=== PATIENT | male | born 1950 | race Caucasian/White ===

== ENCOUNTER → 2020-01-10 12:16 | Outpatient (CLI) | payer MEDICARE, SELFPAY ==
--- NOTE | ~2020-01-10 | XR_ITS ---
EXAMINATION: XR foot LT min 3V EXAM DATE: 01/10/2020 12:36 INDICATION: No known recent injury provided at this time. Pain of the left foot. TECHNIQUE: Left foot dorsoplantar, lateral and oblique projections obtained and reviewed. There is n o prior study for comparison. FINDINGS: There is mild hallux valgus. There is mild to moderate left 1st MTP primary osteoarthritis . Bunion. Small inferior calcaneal spur. There is mild polyarticular midfoot primary osteoarthritis. There are no acute fractures or dislocations identified. There is no subcutaneous gas. The soft ti ssue is unremarkable. There are no radiopaque foreign bodies. IMPRESSION: 1. XR foot LT min 3V exam without acute osseous findings. 2. Bunion, hallux valgus, mild to moderate 1st MTP osteoarthritis. Reviewed, dictated and finalized at location A.
== END ==
PROVIDERS: PCP Family Medicine; Visit Provider Physician Assistant
DX: M19.072 Primary osteoarthritis, left ankle and foot (principal); M20.12 Hallux valgus (acquired), left foot
CPT/HCPCS: 73630

== ENCOUNTER → 2020-12-08 10:47 | Outpatient (CLI) | payer MEDICARE, SELFPAY ==
--- NOTE | ~2020-12-08 | CT_ITS ---
EXAMINATION: CT lung screening DATE: 12/08/2020 11:02 INDICATION: Personal history of tobacco dependence, current smoker with 50 pack year history TECHNIQUE: Computed tomography (CT) of the chest was performed without intravenous contrast. The dose -length product (DLP) was 120.70 mGy-cm. Automated exposure control and iterative reconstruction tech [employer] were employed. COMPARISON: None FINDINGS: There is moderate emphysema. Scattered 1 to 2 mm nodules are present in the upper lobes. Th e lungs are free of focal airspace opacities. There is no pleural effusion or pneumothorax. No pathol ogically enlarged thoracic lymph nodes are identified. The heart size is normal. There is calcified c oronary artery atherosclerosis. There is moderate thoracic spondylosis. IMPRESSION: 1. Lung-RADS category 2: Benign appearance or behavior. Continue annual screening with noncontrast lo w-dose chest CT in 12 months. Reviewed, dictated and finalized at location A. IMPRESSION: 1. Lung-RADS category 2: Benign appearance or behavior. Continue annual screeni ng with noncontrast low-dose chest CT in 12 months.
== END ==
PROVIDERS: PCP Family Medicine; Visit Provider Physician Assistant
DX: Z12.2 Encounter for screening for malignant neoplasm of respiratory organs (principal); Z87.891 Personal history of nicotine dependence
CPT/HCPCS: 71271

== ENCOUNTER 2023-03-07 17:14 | Observation (INO) | payer MEDICARE, SELFPAY ==
[2023-03-07] VITALS (36 sets, daily range): BP systolic 94–116; BP diastolic 74–89; PULSE 94–170; RESP 14–30; TEMP 36–37.2; O2SAT 91–99
--- NOTE | ~2023-03-07 | XR_ITS ---
EXAMINATION: XR chest 1V portable Exam Date/Time: 03/07/2023 17:45 CDT HISTORY: chest pain/dizzy/rapid heartrate Comparison: CT lung screening 12/08/2020. RESULT: Lines, tubes, and devices: Suture wires project to the right of midline. Lungs and pleura: Senescent change. Diffuse interstitial opacity. Calcified granulomas. Cardiomediastinal silhouette: Stable. Other: No acute osseous or upper abdominal finding. IMPRESSION: Mild interstitial edema. Reviewed, dictated and finalized at location K. IMPRESSION: Mild interstitial edema.
--- NOTE | 2023-03-07 17:16 | ECG_ITS ---
Measurements Intervals [place] Rate: 141 P: 66 NC: 138 QRS: 67 QRSD: 89 T: 63 QT: 307 QTc: 472 Interpretive Statements SINUS TACHYCARDIA WITH FREQUENT SUPRAVENTRICULAR PREMATURE COMPLEXES, POSSIBLE ATRIAL FLUTTER/TACHYCARDIA NONSPECIFIC T-WAVE ABNORMALITY ABNORMAL RHYTHM ECG NO PREVIOUS ECG AVAILABLE FOR COMPARISON Electronically Signed On 03-08-2023 19:45:46 CDT by Vee Carrillo M.D.
[2023-03-07 17:33] LABS: Basophils Percent Auto 0.7 % (0.2-1.2); Eosinophils Absolute Auto 0.1 K/mm3 (0-0.3); Eosinophils Percent Auto 1.2 % (0-4.4); Hematocrit 44.7 % (42.0-52.0); Hemoglobin 15.2 g/dL (14.0-18.0); Immature Granulocyte Absolute 0.01 K/mm3 (0.00-0.031); Immature Granulocyte Percent A 0.2 % (0-0.5); Lymphocytes Absolute Auto 1.64 K/mm3 (0.9-3.2); Lymphocytes Percent Auto 28.4 % (18.3-44.2); Mean Corpuscular Hemoglobin 31.7 pg (26-34); Mean Corpuscular Volume 93.1 fl (80-100); Mean Platelet Volume 9.2 fl (7.4-10.4); Monocytes Absolute Auto 0.5 K/mm3 (0.1-0.6); Monocytes Percent Auto 8.3 % (2.6-8.5); Neutrophils Absolute Auto 3.5 K/mm3 (1.3-6.7); Neutrophils Percent Auto 61.2 % (45.5-73.1); Platelet Count Result 171 k/mm3 (150-375); Red Cell Distribution Width 13.5 % (11.5-14.5); White Blood Count 5.8 K/mm3 (4.5-10.0)
[2023-03-07 17:43] LABS: Alanine Aminotransferase 20 U/L (6-50); Albumin Level 4.1 g/dL (3.5-5.1); Alkaline Phosphatase 71 U/L (38-126); Anion Gap 10 mmol/L (8-16); Aspartate Amino Transferase 35 U/L (17-59); Bilirubin,Total 0.7 mg/dL (0.2-1.3); Blood Urea Nitrogen 16 mg/dL (9-20); Calcium 9.2 mg/dL (8.4-10.2); Carbon Dioxide 20 mmol/L (22-30); Chloride 105 mmol/L (98-107); Estimated CRCL calculation 80 ml/min; Estimated Glomerular Filt Rate > 60; Glucose 158 mg/dL (65-110); Lipase 228 U/L (23-300); Partial Thromboplastin Time 27.8 SECONDS (22.3-36.8); Potassium 3.4 mmol/L (3.4-5.0); Prothrombin Time 13.3 Seconds (11.1-14.7); Sodium 135 mmol/L (137-145)
--- NOTE | 2023-03-07 17:48 | ED.DIZZY ---
HPI - Dizziness General Chief Complaint: Dizziness Stated Complaint: chest pain/dizziness Time Seen by Provider: 03/07/23 17:37 History of Present Illness HPI Narrative: Pt says he felt fluttering and palpitations and dizziness about 1330 today. Pt says it feels like he has a gas bubble in his chest like he needs to burp but can't. Pt says the dizziness i s more like he's going to pass out especially when he leans over. Related Data Home Medications Medication Instructions Recorded Confirmed No Home Medications 11/19/20 09/30/22 Allergies Allergy/AdvReac Type Severity Reaction Status Date / Time No Known Allergies Allergy Verified 03/07/23 17:53 Review of Systems Review of Systems: All systems reviewed & are unremarkable except as noted in HPI and below PMFSH Past Medical History Medical History Chronic left hip pain Chronic right hip pain Current smoker Degenerative joint disease of both hips FH: CAD (coronary artery disease) H/O gastroesophageal reflux (GERD) Healthy male adult Normal colonoscopy (~2015) polyps Trochanteric bursitis, left hip Trochanteric bursitis, right hip Surgical History Surgical History H/O hernia repair Family History Family History Father Carcinoma of colon Mother Family history of cardiovascular disease Hypothyroidism Sibling Diabetes mellitus Sibling Acute myocardial infarction Sibling Acute myocardial infarction Other Family history of coronary artery disease Family history of malignant neoplasm Social History Social History Smoking packs per day: 0.5 Smoking cigarettes per day: 10.0 Years smoked: 50 Smoking pack-years: 25.00 Smoking status: Current every day smoker Tobacco type: cigarettes Second hand tobacco smoke exposure: No Alcohol intake: never Substance use: never Substance use type: does not use Current Housing: Decline to Answer Concerned About Future Housing: Decline to Answer Difficulty Paying Gas/Electric Bills: Decline to Answer Difficulty Paying for Meds: Decline to Answer Currently Unemployed: Decline to Answer Difficulty w/ Childcare or Family Care: Decline to Answer Occupation/Education: retired Gender identity (if verbalized by the patient): Male Sexual Orientation (if Verbalized by the Patient): Straight or Heterosexual Spiritual care concerns: No Agree to blood products: Yes Exam Const: General: healthy appearing and no acute distress Nutritional Appearance: well nourished Orientation/consciousness: patient oriented x3 Limitations: no limitations Neck: Neck: normal visual inspection Chest: Chest palpation & inspection: normal inspection of the chest Resp: Effort & Inspection: normal respiratory effort Auscultation: clear to auscultation bilaterally Cardio: Rate: tachycardic Rhythm: abnormal rhythm GI: GI Palp: Yes Soft to palpation Auscultation: normal bowel sounds Skin: General skin exam: normal color Neuro: General: patient oriented x3, moves all extremities, no focal motor deficits and CN's II-XI intact bilaterally Speech: normal speech Extrem: General: normal to inspection and no clubbing, cyanosis or edema Psych: Mental Status: mental status grossly normal Affect: normal affect Attitude: cooperative Course Vital Signs Vital signs: Vital Signs Temperature 98.9 F 03/07/23 17:16 Pulse Rate 94 03/07/23 17:16 Respiratory Rate 16 03/07/23 17:16 Blood Pressure 103/83 03/07/23 17:16 Pulse Oximetry 97 03/07/23 17:16 Oxygen Delivery Room Air 03/07/23 17:16 Temperature 98.9 F 03/07/23 17:16 Pulse Rate 130 H 03/07/23 18:37 Respiratory Rate 16 03/07/23 18:37 Blood P
[2023-03-07 17:54] LABS: Troponin I < 0.012 ng/mL (0.000-0.034)
[2023-03-07] MEDS: SODIUM CHLORIDE 0.9% IV 1,000 ML 999 ML IV CONT (17:54)
[2023-03-07] MEDS: dilTIAZem HCl INJ 25 MG/5 ML VIAL 20 MG IV PUSH (18:29)
--- NOTE | 2023-03-07 18:48 | ECG_ITS ---
Measurements Intervals [place] Rate: 126 P: [place]: 0 QRS: 65 QRSD: 90 T: 60 QT: 311 QTc: 451 Interpretive Statements ATRIAL FIBRILLATION WITH RAPID VENTRICULAR RESPONSE ABNORMAL RHYTHM ECG COMPARED TO ECG 03/07/2023 17:20:19 ATRIAL FIBRILLATION NOW PRESENT Electronically Signed On 03-08-2023 19:47:04 CDT by Vee Carrillo M.D.
--- NOTE | 2023-03-07 19:18 | PC.NURSE ---
Report from EMIL Nicholson.
[2023-03-07] MEDS: dilTIAZem 100 MG/100 ML 100 MG/100 ML BAG IV CONT (19:22)
[2023-03-07 19:43] LABS: Magnesium 1.9 mg/dL (1.6-2.3)
--- NOTE | 2023-03-07 20:07 | PM.IMHP ---
H&P: HPI History of Present Illness Date/Time: 03/07/23 22:10 Chief Complaint: Dizziness and palpitations Narrative: This is a 72-year-old male patient previously healthy who presented to the emergency department due to acute onset dizziness and palpitations started at 13:30 this afternoon abruptly while he was bending over to pick something patient denies chest some breath but states he could feel his heart pounding and he would get dizzy especially when he bent over. Patient denies any previous episodes similar to this. He has never had palpitations. He never had chest pain. Patient reports a dependence on Afrin and that he is a smoker. Review of Systems Review of Systems: All systems reviewed & are unremarkable except as noted in HPI and below PMFSH Past Medical History Medical History Chronic left hip pain Chronic right hip pain Current smoker Degenerative joint disease of both hips FH: CAD (coronary artery disease) H/O gastroesophageal reflux (GERD) Healthy male adult Normal colonoscopy (~2015) polyps Trochanteric bursitis, left hip Trochanteric bursitis, right hip Surgical History Surgical History H/O hernia repair Family History Family History Father Carcinoma of colon Mother Family history of cardiovascular disease Hypothyroidism Sibling Diabetes mellitus Sibling Acute myocardial infarction Sibling Acute myocardial infarction Other Family history of coronary artery disease Family history of malignant neoplasm Social History Social History Smoking packs per day: 1 Smoking cigarettes per day: 20.0 Years smoked: 55 Smoking pack-years: 55.00 Smoking status: Heavy tobacco smoker Tobacco type: cigarettes Second hand tobacco smoke exposure: No Alcohol intake: never Substance use: never Substance use type: does not use Lack of Transportation: No Lack of Food: Never True Current Housing: I Have Housing Concerned About Future Housing: No Difficulty Paying Gas/Electric Bills: No Difficulty Paying for Meds: No Currently Unemployed: No Education: Bachelor's Degree Difficulty w/ Childcare or Family Care: No Occupation/Education: retired Gender identity (if verbalized by the patient): Male Sexual Orientation (if Verbalized by the Patient): Straight or Heterosexual Spiritual care concerns: No Agree to blood products: Yes Meds Home Medications and Allergies Home Medications Medication Instructions Recorded Confirmed Type oxymetazoline 0.05 % nasal spray 2 spray intranasal Q12H PRN Sinus 03/07/23 03/07/23 History (Afrin Sinus (oxymetazoline)) Symptoms Allergies Allergy/AdvReac Type Severity Reaction Status Date / Time No Known Allergies Allergy Verified 03/07/23 17:53 Vital Signs Vital Signs - 24 hr 03/07/23 17:16 03/07/23 17:49 03/07/23 17:53 Temperature 37.2 C Pulse Rate 94 135 H 152 H Respiratory Rate 16 16 Blood Pressure 103/83 107/80 Pulse Oximetry 97 96 Oxygen Delivery Room Air 03/07/23 18:24 03/07/23 18:30 03/07/23 18:31 Temperature Pulse Rate 146 H 111 H 159 H Respiratory Rate 19 18 17 Blood Pressure 108/74 Pulse Oximetry 98 99 94 Oxygen Delivery 03/07/23 18:34 03/07/23 18:35 03/07/23 18:37 Temperature Pulse Rate 125 H 163 H 130 H Respiratory Rate 21 H 17 16 Blood Pressure 108/80 97/77 L Pulse Oximetry 91 95 94 Oxygen Delivery 03/07/23 19:22 Temperature Pulse Rate 116 H Respiratory Rate Blood Pressure 103/86 Pulse Oximetry Oxygen Delivery Exam Narrative: GENERAL: Generally well appearing, alert and oriented, in no apparent distress. HEENT: Pupils are equally round and briskly reac
--- NOTE | 2023-03-07 20:42 | PC.NURSE ---
Report to Beau in IMU. All questions answered.
[2023-03-07] MEDS: dilTIAZem HCl INJ 25 MG/5 ML VIAL 15 MG IV PUSH (21:43)
[2023-03-07 22:13] LABS: Troponin I 0.045 ng/mL (0.000-0.034)
--- NOTE | 2023-03-07 22:43 | ADMGEN ---
This patient, Gibson Manley, was admitted to IMU Room 205-02. Patient/family oriented to hospital policies and general routines including ID bracelet, bed and alarms, visiting hours, pain management, procedures, bathroom and other care routines, personal items, smoking policy, room service/diet, and visiting hours. Information on how to activate the Rapid Response Team has been discussed. Patient/Family are encouraged to report perceived risks to care and to ask questions if they do not understand what they are told or what they should do.
[2023-03-07] MEDS: HEPARIN SODIUM 5,000 UNITS/ML VIAL 4000 UNITS IV PUSH (22:52)
[2023-03-07] MEDS: HEPARIN SOD/D5W 100 UNITS/ML 25,000 UNITS/250 ML BAG 9 UNITS IV CONT (22:53)
[2023-03-07] MEDS: dilTIAZem 100 MG/100 ML 100 MG/100 ML BAG 10 MG IV CONT (22:54)
[2023-03-07 23:22] LABS: Basophils Percent Auto 0.5 % (0.2-1.2); Eosinophils Absolute Auto 0.1 K/mm3 (0-0.3); Eosinophils Percent Auto 1.6 % (0-4.4); Hematocrit 41.4 % (42.0-52.0); Hemoglobin 13.9 g/dL (14.0-18.0); Immature Granulocyte Absolute 0.01 K/mm3 (0.00-0.031); Immature Granulocyte Percent A 0.1 % (0-0.5); Lymphocytes Absolute Auto 1.76 K/mm3 (0.9-3.2); Lymphocytes Percent Auto 23.9 % (18.3-44.2); Mean Corpuscular HGB Conc 33.6 g/dl (32-36); Mean Corpuscular Hemoglobin 31.7 pg (26-34); Mean Corpuscular Volume 94.5 fl (80-100); Mean Platelet Volume 9.2 fl (7.4-10.4); Monocytes Absolute Auto 0.7 K/mm3 (0.1-0.6); Monocytes Percent Auto 9.9 % (2.6-8.5); Neutrophils Absolute Auto 4.7 K/mm3 (1.3-6.7); Platelet Count Result 163 k/mm3 (150-375); Red Blood Count 4.38 M/mm3 (4.6-6.20); Red Cell Distribution Width 13.7 % (11.5-14.5); White Blood Count 7.4 K/mm3 (4.5-10.0)
[2023-03-07 23:50] LABS: NT Pro B Type Natriuretic Pept 828 pg/mL (19.9-100); Troponin I 0.057 ng/mL (0.000-0.034)
[2023-03-08] VITALS (12 sets, daily range): BP systolic 93–117; BP diastolic 65–84; PULSE 68–139; RESP 14–20; TEMP 36.2–37; O2SAT 96–100
--- NOTE | 2023-03-08 | ECHO_ITS ---
Patient Info Name: Gibson Manley Age: 72 years : 1950 Gender: Male Ht: 71 in Wt: 169 lbs BSA: 1.96 m2 HR: 107 bpm BP: 114 / 67 mmHg Heart Rhythm: Sinus Rhythm Technical Quality: Good Exam Date: 03/08/2023 8:58 AM Exam Location: [facility] Card Pulmonary Patient Status: Outpatient Admit Date: 03/07/2023 Staff Ordering Physician: Milton Lanier APRN Engine Emission Technician: Owen Correa RDCS Attending Provider: Darlene Mohan DO Referring Physician: Yannick ADAMS; Exam Type: CA echo doppler color flow Study Info Indications - new a fib, psitive troponin Complete two-dimensional, color flow and Doppler transthoracic echocardiogram is performed. Summary 1. Complete two-dimensional, color flow and Doppler transthoracic echocardiogram is performed. 2. Normal left ventricular size and and thickness. Normal left ventricular function with no segmental wall motion abnormalities. Normal diastolic function. Ejection fraction 60-65%. 3. Left atrial chamber dimension is mildly enlarged. 4. No pulmonary hypertension, estimated pulmonary arterial systolic pressure is 27 mmHg. 5. No significant valve disease. 6. Normal sinus rhythm. Left Ventricle Left ventricular chamber dimension is normal. Left ventricular systolic function is normal, estimated at 60-65%. There is no increased left ventricular wall thickness. Left ventricular septal wall motion is normal. The left ventricular diastolic function is normal. Right Ventricle Right ventricular chamber dimension is normal. Right ventricular systolic function is normal. Left Atria Left atrial chamber dimension is mildly enlarged. Right Atria Right atrial chamber dimension is normal. Aortic Valve The aortic valve is trileaflet. There is no aortic valve sclerosis. There is no aortic valve stenosis. There is no aortic valve regurgitation. Pulmonic Valve The pulmonic valve is normal. There is no pulmonic valve stenosis. There is no pulmonic regurgitation. Mitral Valve The mitral valve has normal leaflets. There is no mitral valve stenosis. There is no mitral valve regurgitation. Tricuspid Valve The tricuspid valve leaflets are normal. There is no significant tricuspid valve stenosis. There is trace tricuspid valve regurgitation. No pulmonary hypertension, estimated pulmonary arterial systolic pressure is 27 mmHg. Pericardium/Pleural The pericardium appears normal. There is no pericardial effusion. Inferior Vena Cava Normal inferior vena cava with >50% collapse upon inspiration consistent with Empty right atrial pressure, 10 mmHg. Aorta The aortic root size at the sinus of Valsalva is normal. The prox ascending aorta size is normal. Left Ventricular Outflow Tract Name Value Normal LVOT 2D LVOT Diameter 2.0 cm LVOT Doppler LVOT Peak Gradient 3 mmHg LVOT Mean Gradient 2 mmHg LVOT VTI 22 cm LVOT VTI/AV VTI Ratio 0.8 LVOT Stroke Volume 69 ml LVOT CO 4.0 l/min LVOT CI 2.0 l/min/m2 Pulmonic Valve -------
[2023-03-08 05:12] LABS: Basophils Absolute Auto 0.1 K/mm3 (0.0-0.1); Basophils Percent Auto 0.9 % (0.2-1.2); Eosinophils Absolute Auto 0.1 K/mm3 (0-0.3); Eosinophils Percent Auto 1.1 % (0-4.4); Hemoglobin 14.3 g/dL (14.0-18.0); Immature Granulocyte Absolute 0.02 K/mm3 (0.00-0.031); Immature Granulocyte Percent A 0.3 % (0-0.5); Lymphocytes Absolute Auto 1.72 K/mm3 (0.9-3.2); Lymphocytes Percent Auto 26.2 % (18.3-44.2); Mean Corpuscular HGB Conc 33.3 g/dl (32-36); Mean Corpuscular Hemoglobin 32.1 pg (26-34); Mean Corpuscular Volume 96.6 fl (80-100); Mean Platelet Volume 9.5 fl (7.4-10.4); Monocytes Absolute Auto 0.8 K/mm3 (0.1-0.6); Monocytes Percent Auto 11.4 % (2.6-8.5); Neutrophils Percent Auto 60.1 % (45.5-73.1); Platelet Count Result 160 k/mm3 (150-375); Red Blood Count 4.45 M/mm3 (4.6-6.20); Red Cell Distribution Width 13.7 % (11.5-14.5); White Blood Count 6.6 K/mm3 (4.5-10.0)
[2023-03-08 05:23] LABS: Partial Thromboplastin Time 53.3 SECONDS (22.3-36.8)
[2023-03-08 05:26] LABS: Alanine Aminotransferase 17 U/L (6-50); Albumin Level 3.4 g/dL (3.5-5.1); Alkaline Phosphatase 59 U/L (38-126); Anion Gap 5 mmol/L (8-16); Aspartate Amino Transferase 29 U/L (17-59); Bilirubin,Total 0.7 mg/dL (0.2-1.3); Blood Urea Nitrogen 12 mg/dL (9-20); Calcium 8.1 mg/dL (8.4-10.2); Carbon Dioxide 23 mmol/L (22-30); Chloride 108 mmol/L (98-107); Estimated CRCL calculation 90 ml/min; Estimated Glomerular Filt Rate > 60; Glucose 99 mg/dL (65-110); Potassium 3.5 mmol/L (3.4-5.0); Sodium 136 mmol/L (137-145)
[2023-03-08] MEDS: HEPARIN SODIUM 5,000 UNITS/ML VIAL 4000 UNITS IV PUSH (05:37)
[2023-03-08] MEDS: dilTIAZem 100 MG/100 ML 100 MG/100 ML BAG 10 MG IV CONT (08:32)
--- NOTE | 2023-03-08 08:46 | ECG_ITS ---
Measurements Intervals [place] Rate: 75 P: 59 IN: 131 QRS: 69 QRSD: 92 T: 59 QT: 391 QTc: 439 Interpretive Statements SINUS RHYTHM POSSIBLE LEFT ATRIAL ENLARGEMENT [-0.1mV P WAVE IN V1/V2] COMPARED TO ECG 03/07/2023 19:05:16 SINUS RHYTHM NOW PRESENT Electronically Signed On 03-08-2023 19:54:31 CDT by Vee Carrillo M.D.
[2023-03-08 11:54] LABS: Partial Thromboplastin Time 62.2 SECONDS (22.3-36.8)
[2023-03-08] MEDS: HEPARIN SODIUM 5,000 UNITS/ML VIAL 3000 UNITS IV PUSH (12:33)
--- NOTE | 2023-03-08 13:16 | PM.IMPN ---
Progress Note: A&P Assessment and Plan (1) Atrial fibrillation with RVR: Code(s): I48.91 - Unspecified atrial fibrillation Status: Acute Assessment and Plan: New onset atrial fibrillation with palpitations dizziness starting 1330 this afternoon prompted by bending over. Patient showing improvement Cardizem bolus, Cardizem drip infusing. (2) Elevated troponin I level: Code(s): R79.89 - Other specified abnormal findings of blood chemistry Status: Acute Assessment and Plan: Troponin elevated on second draw. Heparin drip ordered. Most likely due to demand ischemia from tachydysrhythmia. 6 hour troponin pending. (3) Current smoker: Code(s): F17.200 - Nicotine dependence, unspecified, uncomplicated Status: Acute Assessment and Plan: Patient refused nicotine patch. (4) Chronic rhinitis: Code(s): J31.0 - Chronic rhinitis Status: Acute Assessment and Plan: Patient is physiologically dependent on Afrin. Threatened to leave AMA with HR 170s unless he got his Afrin ordered. He then threw the bottle because it was not mentholated. May use home medication when available. Plan Admit to IMU Cardizem drip Troponin 4x in 3 hours, heparin drip ordered Echocardiogram ordered Cardiology consult, appreciate recommendations and assistance New onset a-fib, may be Cardioversion candidate Potassium and magnesium repleted to optimize in light of tachydysrhythmia Patient very sharp and not polite, caution with interactions Subjective Date/time seen: 03/08/23 13:16 Interval history: no new complaints no in sinus rhythm Exam Narrative: GENERAL: Generally well appearing, alert and oriented, in no apparent distress. HEENT: Pupils are equally round and briskly reactive to light. Extraocular muscles are intact. Oral mucous membranes are moist without lesions. NECK: The patient has no noted JVD. No adenopathy is appreciated. CHEST/LUNGS: Lungs are clear bilaterally without rhonchi, rales, or wheezes. There is no subcutaneous air appreciated. There is no tenderness to the chest wall. HEART: Irregularly irregular rhythm with rapid rate, atrial fibrillation with RVR rate of 126 on bedside fatback trimmer per my interpretation. No murmurs, rubs, or gallops are appreciated. Distal pulses are 2+. ABDOMEN: The patient?s abdomen is soft, nontender, and nondistended. Bowel sounds are positive. No peritoneal signs. EXTREMITIES: The patient has no peripheral edema. There is no focal long bone tenderness or deformity. SKIN: The patient?s skin is warm and dry, without rashes or lesions. PSYCHIATRIC: The patient has normal mental status and has a terse affect. NEUROLOGIC: There are no gross deficits to the cranial nerves. Patient ambulates with steady gait. Objective Data Vital Signs Vital Signs: Vital Signs - 24 hr 03/07/23 17:16 03/07/23 17:49 03/07/23 17:53 Temperature 98.9 F Pulse Rate 94 135 H 152 H Respiratory Rate 16 16 Blood Pressure 103/83 107/80 Pulse Oximetry 97 96 Oxygen Delivery Room Air 03/07/23 18:24 03/07/23 18:30 03/07/23 18:31 Temperature Pulse Rate 146 H 111 H 159 H Respiratory Rate 19 18 17 Blood Pressure 108/74 Pulse Oximetry 98 99 94 Oxygen Delivery 03/07/23 18:34 03/07/23 18:35 03/07/23 18:37 Temperature Pulse Rate 125 H 163 H 130 H Respiratory Rate 21 H 17 16 Blood Pressure 108/80 97/77 L Pulse Oximetry 91 95 94 Oxygen Delivery 03/07/23 19:22 03/07/23 20:48 03/07/23 20:16 Temperature Pulse Rate 116 H 152 H 157 H Respiratory Rate Blood Pressure 103/86 107/84 109/86 Pulse Oximetry Oxygen Delivery 03/07/23 18:38 03/07/23 18:39 03/07/23 18:45 Temperature Pulse Rate 124 H 129 H 133 H Respiratory Rate 19 18 14 Blood Pressure 94/79 L Pulse Oximetry 94 94 96 Oxygen Delivery 03/07/23 18:46 03/07/23 19:00 03/07/23 19:01 Temperature Pulse Rate 136 H 131 H 144 H Respira
--- NOTE | 2023-03-08 17:22 | PM.CNCAR ---
Assessment and Plan Assessment and plan (1) Atrial fibrillation with RVR: Code(s): I48.91 - Unspecified atrial fibrillation Status: Acute Assessment and Plan: New onset of paroxysmal AFib with rapid ventricular response. Symptomatic with severe dizziness, some mild chest discomfort. He did have a small bump in troponins and proBNP but has converted to sinus rhythm. No history to suggest prior problems with any CAD or CHF. Counseled patient extensively about paroxysmal atrial fibrillation, etiologies, treatment, risk of cardioembolic events. Patient's chads 2 Vasc score is 1. --recommend aspirin 325 mg daily --DC Cardizem drip --start Cardizem 180 mg daily --if up and about with no problems, can be discharged tonight or tomorrow with office follow-up --will see if the patient needs an anti rhythmic agent if he has recurrences in the near future. --will obtain a TSH as an outpatient to complete the AFib evaluation (2) Elevated troponin I level: Code(s): R79.89 - Other specified abnormal findings of blood chemistry Status: Acute Assessment and Plan: Mildly elevated troponin and chest discomfort, which appears to be nonischemic myocardial injury due to AFib RVR. Rule out underlying CAD to evaluate the chest pain and also see if the patient would be a candidate for propafenone or flecainide therapy.. --outpatient stress echo (3) Tobacco use: Code(s): Z72.0 - Tobacco use Status: Acute Assessment and Plan: Tobacco cessation encouraged History of Present Illness History of Present Illness Consult date/time: 03/08/23 17:22 Reason For Visit: A Flutter with RVR Narrative: Gibson Manley is a 72-year-old male whom we are asked to see at the request of HODA Lanier for advice and opinion regarding his atrial fibrillation, in consultation. Previously healthy. Patient was in his normal state of health yesterday when he suddenly developed dizziness and racing heart beat. He had some chest discomfort, a gassy feeling. He came to the emergency room with atrial fib RVR, with his heart rate 94-130 and blood pressure initially was 97/77 and 103/83, with good oxygenation on room air. He was started on a Cardizem drip. He converted to sinus rhythm this morning. He would like to be discharged soon. Troponins were 0.012, 0.45 and 0.57 and proBNP was 800. 03/07/2023 EKG at 5:20 p.m.: NSR/sinus tachycardia with frequent APCs and brief runs of atrial tachycardia. 03/07/2023 EKG at 7:05 p.m.: AFib RVR rate 126, nonspecific ST changes 03/08/2023 EKG at 8:59 a.m.: NSR with short AR interval rate 75, no ischemic changes All EKGs personally reviewed Had minor fleeting palpitations in the past but nothing sustained. Can not exercise and work hard with no shortness of breath or chest discomfort. History of tobacco use but no hx heart dz, HTN, DM. NO KODI, etoh, h/o thyroid dz. Possible heart disease in the family. No TSH available Chest x-ray: Mild interstitial edema. Personally reviewed, agree, probable pulmonary vascular congestion and mild CHF Review of Systems Constitutional: Constitutional: Denies fever(s) Eyes: Eyes: Reports no additional eye complaints ENT: Denies epistaxis Cardiovascular: Cardiovascular: Denies chest pain, Denies pedal edema, Denies lightheadedness and Denies dyspnea Respiratory: Respiratory: Denies chest congestion and Denies dyspnea Gastrointestinal: Gastrointestinal: Denies abdominal pain and Denies hematochezia Genitourinary: Genitourinary: Denies hematuria Musculoskeletal: Musculoskeletal: Reports no additional musculoskeletal complaints Integumentary/Breasts: Skin/Breast: Reports system reviewed and no additional complaints, except as docu Neurologic: Reports system reviewed and no additional complaints, except as documented and Denies behavioral changes Psychiatric: Psychiatric: Denies behavioral changes [facility]
[2023-03-08] MEDS: dilTIAZem HCL CD 180 MG CAP.24HR PO (18:43)
--- NOTE | 2023-03-08 19:07 | PM.DS ---
DS: Admitting Diagnosis Discharge Date 03/08/23 Admitting Diagnosis afib flutter DS: Discharge Diagnosis Discharge Diagnosis (1) Atrial fibrillation with RVR: Code(s): I48.91 - Unspecified atrial fibrillation Status: Acute Assessment and Plan: New onset atrial fibrillation with palpitations dizziness starting 1330 this afternoon prompted by bending over. Patient showing improvement Cardizem bolus, Cardizem drip infusing. (2) Elevated troponin I level: Code(s): R79.89 - Other specified abnormal findings of blood chemistry Status: Acute Assessment and Plan: Troponin elevated on second draw. Heparin drip ordered. Most likely due to demand ischemia from tachydysrhythmia. 6 hour troponin pending. (3) Current smoker: Code(s): F17.200 - Nicotine dependence, unspecified, uncomplicated Status: Acute Assessment and Plan: Patient refused nicotine patch. (4) Chronic rhinitis: Code(s): J31.0 - Chronic rhinitis Status: Acute Assessment and Plan: Patient is physiologically dependent on Afrin. Threatened to leave AMA with HR 170s unless he got his Afrin ordered. He then threw the bottle because it was not mentholated. May use home medication when available. Plan Admit to IMU Cardizem drip Troponin 4x in 3 hours, heparin drip ordered Echocardiogram ordered Cardiology consult, appreciate recommendations and assistance New onset a-fib, may be Cardioversion candidate Potassium and magnesium repleted to optimize in light of tachydysrhythmia Patient very sharp and not polite, caution with interactions DS: Summary Hospital Course Hospital Course: admitted for afib flutter, new dx workup unrevelaing fu cardiology cardizem adn full dose aspirin on dc Time Spent with Patient Time attestation: Total time spent providing and/or coordinating discharge services: Exam Narrative: GENERAL: Generally well appearing, alert and oriented, in no apparent distress. HEENT: Pupils are equally round and briskly reactive to light. Extraocular muscles are intact. Oral mucous membranes are moist without lesions. NECK: The patient has no noted JVD. No adenopathy is appreciated. CHEST/LUNGS: Lungs are clear bilaterally without rhonchi, rales, or wheezes. There is no subcutaneous air appreciated. There is no tenderness to the chest wall. HEART: Irregularly irregular rhythm with rapid rate, atrial fibrillation with RVR rate of 126 on bedside media monitor per my interpretation. No murmurs, rubs, or gallops are appreciated. Distal pulses are 2+. ABDOMEN: The patient?s abdomen is soft, nontender, and nondistended. Bowel sounds are positive. No peritoneal signs. EXTREMITIES: The patient has no peripheral edema. There is no focal long bone tenderness or deformity. SKIN: The patient?s skin is warm and dry, without rashes or lesions. PSYCHIATRIC: The patient has normal mental status and has a terse affect. NEUROLOGIC: There are no gross deficits to the cranial nerves. Patient ambulates with steady gait. DS: Data Data Completed and Pending Labs on day of discharge: Labs from last 24 hours 03/08/23 03/08/23 03/07/23 11:30 04:54 23:15 WBC 6.6 7.4 RBC 4.45 L 4.38 L Hgb 14.3 13.9 L Hct 43.0 41.4 L MCV 96.6 94.5 MCH 32.1 31.7 MCHC 33.3 33.6 RDW 13.7 13.7 Plt Count 160 163 MPV 9.5 9.2 Immature Gran % (Auto) 0.3 0.1 Neut % (Auto) 60.1 64.0 Lymph % (Auto) 26.2 23.9 [place] % (Auto) 11.4 H 9.9 H Eos % (Auto) 1.1 1.6 Baso % (Auto) 0.9 0.5 Lymph # (Auto) 1.72 1.76 [place] # (Auto) 0.8 H 0.7 H Eos # (Auto) 0.1 0.1 Baso # (Auto) 0.1 0.0 Abs Immat Gran (auto) 0.02 0.01 Absolute Neuts (auto) 4.0 4.7 Absolute Nucleated RBC 0.0 0.0 Nucleated RBC % 0.0 0.0 PT Cancelled INR Cancelled APTT 62.2 H 53.3 H Cancelled Sodium 136 L Potassium 3.5 Chloride 108 H Carbon Dioxide 23 Anion Gap 5 L
== END 2023-03-08 19:48 | disposition home or self-care (01) ==
LOC: ANHED 18:56 → ANHIMU 21:06
PROVIDERS: Internal Medicine; Nurse Practitioner; Admitting Provider Student in an Organized Health Care Education/Training Program; Emergency Provider Emergency Medicine; PCP Family Medicine; Visit Provider Chiropractor
DX: I48.91 Unspecified atrial fibrillation (principal); R77.8 Other specified abnormalities of plasma proteins; J31.0 Chronic rhinitis; I25.10 Atherosclerotic heart disease of native coronary artery without angina pectoris; J84.9 Interstitial pulmonary disease, unspecified; M16.0 Bilateral primary osteoarthritis of hip; F17.210 Nicotine dependence, cigarettes, uncomplicated; Z82.49 Family history of ischemic heart disease and other diseases of the circulatory system; Z79.82 Long term (current) use of aspirin; Z79.899 Other long term (current) drug therapy
CPT/HCPCS: 36415; 71045; 80053; 83690; 83735; 83880; 84484; 85025; 85610; 85730; 93005; 93306; 96361; 96365; 96366; 96368; 96376; 99285; A9270; G0378; J1644; J7030

== ENCOUNTER 2023-03-22 09:46 | Outpatient (CLI) | payer MEDICARE, SELFPAY ==
--- NOTE | ~2023-03-22 | CT_ITS ---
CT Scan of the Chest without Contrast: Clinical Indication: Lung cancer screening, current smoker Technique: Contiguous sections were acquired throughout the chest without intravenous contrast. Dose reduction technique was used on this scan by utilizing automated exposure control and iterative recon struction technique. The dose-length product (DLP) was 119.74 mGy-cm. COMPARISON: 12/08/2020 Findings: There is no evidence of any significant mediastinal, hilar or axillary lymphadenopathy. Coronary tavon ry calcifications are present. There is no evidence of pleural or pericardial effusion. Calcified left granuloma noted. No other pulmonary nodule seen. There are peripheral chronic intersti tial changes in the lungs, which are stable from prior exam. Images through the upper abdomen reveal no abnormalities. Impression: Lung RADS 2: Benign appearance. 12 month follow-up screening CT advised. Stable chronic interstitial changes peripherally in the lungs. Reviewed, dictated and finalized at [facility]. N MIXER Impression: Lung RADS 2: Benign appearance. 12 month follow-up screening CT advised. Stable chronic interstitial changes peripherally in the lungs.
== END 2023-03-22 09:47 | disposition home or self-care (01) ==
PROVIDERS: PCP Family Medicine; Visit Provider Physician Assistant
DX: F17.210 Nicotine dependence, cigarettes, uncomplicated (principal)
CPT/HCPCS: 71271

== ENCOUNTER 2023-08-09 09:54 | Outpatient (CLI) | payer MEDICARE, SELFPAY ==
--- NOTE | ~2023-08-09 | CT_ITS ---
EXAMINATION: CT abdomen pelvis w con DATE: 08/09/2023 10:16 INDICATION: Abnormal weight loss. Constipation. TECHNIQUE: Computed tomography (CT) of the abdomen and pelvis was performed with 100 cc Omnipaque 350 intravenous contrast. The dose-length product was 251.29 mGy-cm. Automated exposure control and iter ative reconstruction technique were employed. COMPARISON: CT dated 12/29/2011. FINDINGS: Heart size normal. No significant pleural or pericardial effusion. There is atherosclerosis and ectasia of the aorta. There are changes of bilateral inguinal hernia repair. There is right carola l cyst. Small subcentimeter hypodensities of the liver, most likely benign cysts. The spleen contains calcified granulomas. Prostate gland is enlarged and contains central coarse calcifications. Colonic diverticulosis without evidence for diverticulitis. Nonobstructive bowel pattern. Moderate colonic f ecal loading. There is atherosclerosis of the aorta without aneurysm. No lymphadenopathy. Severe lumb ar spondylosis with levoscoliosis. There is severe osteoarthritis of the hips. IMPRESSION: 1. No acute abdominal abnormality. Reviewed, dictated and finalized at location L.
== END 2023-08-09 09:55 | disposition home or self-care (01) ==
PROVIDERS: PCP Family Medicine; Visit Provider Nurse Practitioner
DX: R63.4 Abnormal weight loss (principal); K59.00 Constipation, unspecified
CPT/HCPCS: 74177; Q9967

== ENCOUNTER 2024-07-24 09:35 | Outpatient (CLI) | payer MEDICARE, SELFPAY ==
--- NOTE | ~2024-07-24 | XR_ITS ---
XR knee RT 3V Ordering provider: Sade Zepeda MD History: . M25.561 - Pain in right knee, fell twisted rt knee x 2 weeks . Comparison: December 18 2015 FINDINGS: BONES: No acute fracture or dislocation. JOINT SPACES: Total knee arthroplasty. SOFT TISSUES: Normal. IMPRESSION: No acute osseous abnormality right knee. No change from previous examination. Reviewed, dictated and finalized at location A.
== END 2024-07-24 09:36 | disposition home or self-care (01) ==
PROVIDERS: PCP Family Medicine; Visit Provider Family Medicine
DX: M25.561 Pain in right knee (principal)
CPT/HCPCS: 73562